=== PATIENT | male | born 1970 | race Caucasian/White ===

== ENCOUNTER 2021-07-27 23:16 | Emergency (ER) | payer BC, OTHER ==
[2021-07-27] MEDS ORDERED: Acetaminophen 500 MG Tab PO ONE (23:58)
[2021-07-27] MEDS ORDERED: Cyclobenzaprine 10 MG Tab PO ONE (23:58)
[2021-07-27] MEDS ORDERED: Ketorolac 30 MG/ML SDV IM ONE (23:59)
[2021-07-28] MEDS: Ketorolac 30 MG/ML SDV IM ONE ×2 (00:04→00:08)
== END 2021-07-28 00:18 | disposition home or self-care (01) ==
LOC: FB.ED 23:16
DX: S92.422A Displaced fracture of distal phalanx of left great toe, initial encounter for closed fracture (principal); S93.105A Unspecified dislocation of left toe(s), initial encounter; E78.00 Pure hypercholesterolemia, unspecified; Z79.899 Other long term (current) drug therapy; W22.09XA Striking against other stationary object, initial encounter
CPT/HCPCS: 73660; 99283; A9270; J1885

== ENCOUNTER 2023-02-24 06:15 | Day surgery (SDC) | payer OTHER ==
[~2023-02-24 06:15] MED LIST: Lactated Ringers 1,000 ML IV SCH; Sodium Chloride 0.9% 10 ML Syringe FLUSH PRN
[2023-02-24] MEDS ORDERED: Propofol 200 MG/20 ML SDV IV ONE (06:16)
[2023-02-24] MEDS ORDERED: Ketorolac 30 MG/ML SDV IVPUSH ONE (06:16)
[2023-02-24] MEDS ORDERED: Lidocaine 2% 5 ML SDV IV ONE (06:16)
[2023-02-24] MEDS ORDERED: Midazolam 1 MG/ML 2 ML SDV IV ONE (06:16)
[2023-02-24] MEDS ORDERED: ceFAZolin 2 GM Vial IVPUSH ONE (07:13)
[2023-02-24] MEDS ORDERED: Bupivacaine 0.5% 30 ML SDV INJECT ONE (07:52)
[2023-02-24] MEDS ORDERED: Lidocaine 1% with EPINEPHrine 1:100,000 20 ML MDV INJECT ONE (07:52)
== END 2023-02-24 09:40 | disposition home or self-care (01) ==
LOC: FB.SDS 06:15
PROVIDERS: ATTEND Surgery
DX: D17.9 Benign lipomatous neoplasm, unspecified (principal); K40.20 Bilateral inguinal hernia, without obstruction or gangrene, not specified as recurrent; E78.5 Hyperlipidemia, unspecified; Z79.899 Other long term (current) drug therapy; Z87.891 Personal history of nicotine dependence; E66.9 Obesity, unspecified; Z68.30 Body mass index [BMI] 30.0-30.9, adult
CPT/HCPCS: 01710; 21932; 88304; J0690; J1885; J2250; J2704; J3490; J7120